=== PATIENT | male | born 1960 | race Caucasian/White ===

== ENCOUNTER 2020-03-31 13:09 | Inpatient (IN) | payer OTHER, SELFPAY ==
[~2020-03-31] VITALS: Ht 170.2 cm; Wt 90.7 kg
[2020-03-31 13:27] VITALS: BP 161/93
--- NOTE | 2020-03-31 13:32 | NUR ---
ERMD MADE AWARE OF 77% ON ROOM AIR
--- NOTE | 2020-03-31 13:38 | NUR ---
PT PLACED ON 6L NC IN TENT FOR HYPOXIA. 90% ON 6L NC.
[2020-03-31] MEDS ORDERED: ALBUTEROL HFA MDI 90 MCG/ACTUATION 8 GM INH ONE (15:05)
[2020-03-31] MEDS ORDERED: AZITHROMYCIN 500 MG in DEXTROSE 5% 250 ML IV ONE (15:05)
[2020-03-31] MEDS ORDERED: DEXAMETHASONE 4 MG/ML VIAL IVP ONE (15:05)
--- NOTE | 2020-03-31 15:31 | NUR ---
EKG PERFORMED IN TENT. EKG READS SINUS TACHYCARDIA @ 100
[2020-03-31 15:35] LABS: HEMATOCRIT 39.9 % (36-52); HEMOGLOBIN 13.5 g/dL (12.0-18.0); MEAN CORPUSCULAR HEMOGLOBIN 30 pg (27-31); MEAN CORPUSCULAR HGB CONC 34 g/dL (33-37); MEAN CORPUSCULAR VOLUME 88.3 fL (80-94); PLATELET COUNT (AUTO) 443 K/uL (140-450); RED BLOOD CELL COUNT(AUTO) 4.52 MIL/uL (4.20-6.10); RED CELL DISTRIBUTION WIDTH 13.8 % (11.6-13.7); WHITE BLOOD COUNT (AUTO) 15.5 K/uL (4.8-10.8)
[2020-03-31 16:05] LABS: BLASTS, MANUAL % 1 % (0-0); LYMPHOCYTES % (MANUAL) 12 % (20-46); MONOCYTES % (MANUAL) 4 % (5-12); PROMYELOCYTES % 1 % (0-0)
[2020-03-31 16:12] LABS: ALBUMIN 2.8 g/dL (3.4-5.0); ANION GAP 13.3 (8-16); CARBON DIOXIDE 27.7 mmol/L (21-32); CREATININE 0.9 mg/dL (0.6-1.3); TOTAL BILIRUBIN 0.6 mg/dL (0.0-1.0)
[2020-03-31] MEDS ORDERED: DEXAMETHASONE 4 MG/ML VIAL ONE (16:35)
[2020-03-31] MEDS ORDERED: cefTRIAXone 1,000 MG VIAL ONE (16:35)
--- NOTE | 2020-03-31 16:44 | NUR ---
BREATHING TX OMITTED DUE TO HIGHER CLINICAL PRIORITY, IN CODE BLUE.
--- NOTE | 2020-03-31 17:04 | NUR ---
NOVEL/POLINA SWABS COLLECTED AND SENT TO LAB
--- NOTE | 2020-03-31 17:55 | NUR ---
Received from the tent, report from MASHA Fang O2 @ 6l/min NC, O2 sat 92%, VVS except HTN, HOB elevated Resp even and unlabored, in NAD
--- NOTE | 2020-03-31 18:05 | NUR ---
SPOKE WITH PTS SON TIFFANIE, PER PT REQUEST, TO GIVE UPDATE ON PLAN OF CARE. STATES HE WILL BRING PTS CELLPHONE/DEFENCE FORCE SENIOR OFFICER PER PTS REQUEST.
--- NOTE | 2020-03-31 18:05 | NUR ---
IV started left hand #20g, meds and abx given
[2020-03-31] MEDS ORDERED: AZITHROMYCIN 500 MG INJ VIAL IV ONE (18:21)
--- NOTE | 2020-03-31 19:16 | NUR ---
KELSY FROM [facility] CALLED FOR CLINICAL INFORMATION
--- NOTE | 2020-03-31 19:20 | NUR ---
RT AT BEDSIDE EVALUATING PT.
--- NOTE | 2020-03-31 19:30 | NUR ---
RECEIVED REPORT FROM EDU FLANAGAN FOR CONTINUITY OF CARE.
--- NOTE | 2020-03-31 19:32 | NUR ---
Detailed report given to MASHA Khanna for fast food shift lead. Questions answered. Orders and meds reviewed.
--- NOTE | 2020-03-31 19:40 | NUR ---
ABG WAS REDRAWN AT 192 PT WAS ON 5LNC. PH 7.448 CO2 37.0 PO2 55.2 HCO3 25 BE 1.3 SATS 89%. PLACED PT ON NRB MASK AT 15L PER DR GASCA
--- NOTE | 2020-03-31 21:32 | NUR ---
NOTIFIED ER MD GASCA OF PT'S HIGH BP: 166/111 AND GAVE NEW VERBAL ORDER FOR CLONIDINE 0.1 X 1 TAB. ORDER READ BACK.
[2020-03-31] MEDS ORDERED: CLONIDINE HYDROCHLORIDE 0.1 MG TAB PO ONE (21:35)
--- NOTE | 2020-03-31 22:18 | NUR ---
PT LAYING IN BED IN NO ACUTE DISTRESS NOTED, RESPIRATIONS ARE EVEN AND UNLABORED, BREATHING THROUGH NON-REBREATHER MASK 15 L OF OXYGEN. O2 SAT AT THIS TIME 96%. ON CARDIAC MONITORING, PULSE OXIMETRY AND BP MONITORING.
[2020-03-31] MEDS ORDERED: POTASSIUM CHLORIDE 10 MEQ TABER PO PRN (23:10)
[2020-03-31] MEDS ORDERED: LORazepam 1 MG TAB PO PRN (23:10)
[2020-03-31] MEDS ORDERED: ACETAMINOPHEN 325 MG TAB PO PRN (23:10)
[2020-03-31] MEDS: NACL 0.9% 1,000 ML IV SCH (23:10)
[2020-03-31] MEDS ORDERED: HYDROcodone/APAP 5/325 MG 1 TAB TAB PO PRN (23:10)
[2020-03-31] MEDS ORDERED: KCL 20 MEQ/WATER INJ PREMIX 200 ML IV PRN (23:10)
[2020-03-31] MEDS ORDERED: MAG SULF 2000 MG/WATER PREMIX 50 ML IV PRN (23:10)
[2020-03-31] MEDS ORDERED: ONDANSETRON 4 MG/2 ML VIAL IVP PRN (23:10)
--- NOTE | 2020-04-01 07:09 | NUR ---
PT STATES HE DOES NOT TAKE ANY HOME MEDS AT HOME. ATTEMPTED TO MAKE HOME RECORD BUT UNABLE TO MAKE RECORD AT THIS TIME IN SYSTEM.
--- NOTE | 2020-04-01 07:15 | NUR ---
RECEIVED ENDORSEMENT FROM OVERLOCK HEMMER, AWAKE,ALERT, ORIENTEDX4 , WITH O2 AT 15L/MIN VIA NON REBREATHER MASK, [id number]-77%. ADMITTED A CASE OF COVID AND ACUTE RESPIRATORY FAILURE, WITH IV CANNULA G20 AT LEFT HAND ON SALINE LOCK NOTED. SAFETY MEASURES IN PLACE AND CONTINUE MONITOR
--- NOTE | 2020-04-01 07:25 | NUR ---
GAVE REPORT TO RELYN RN FOR CONTINUITY OF CARE.
--- NOTE | 2020-04-01 09:24 | NUR ---
PATIENT HAS BEEN SCREENED AND CATEGORIZED MODERATE NUTRITION RISK. PATIENT WILL BE SEEN WITHIN 3-5 DAYS OF ADMISSION. 04/03/20 04/05/[address]
[2020-04-01] MEDS: DEXAMETHASONE 4 MG/ML VIAL IVP SCH (09:25)
--- NOTE | 2020-04-01 09:28 | NUR ---
FULLY AWAKE AND ALERT,DUE MEDICATION GIVEN,
--- NOTE | 2020-04-01 09:36 | NUR ---
RECEIVED REPORT FROM ER NURSE. PT IS AAOX4, MONGOLIAN SPEAKING, HAS LH20G INFUSING NS. EDEMA IN LOWER LIMBS, SKIN INTACT. WILL WAIT FOR PT TO COME TO UNIT
--- NOTE | 2020-04-01 09:37 | NUR ---
MST CONTACTED FOR TRANSFER AND TALKED TO MASHA SEO, REPORT GIVEN.
[2020-04-01 09:48] LABS: BASOPHILS % (AUTO) 0.2 % (0.0-2.0); HEMATOCRIT 39.5 % (36-52); HEMOGLOBIN 13.2 g/dL (12.0-18.0); LYMPHOCYTES # (AUTO) 0.7 K/uL (2.0-11.5); LYMPHOCYTES % (AUTO) 5.1 % (20.5-51.1); MEAN CORPUSCULAR HEMOGLOBIN 30 pg (27-31); MEAN CORPUSCULAR HGB CONC 33 g/dL (33-37); MEAN CORPUSCULAR VOLUME 89.4 fL (80-94); MONOCYTES # (AUTO) 0.7 K/uL (0.8-1.0); MONOCYTES % (AUTO) 5.2 % (1.7-9.3); NEUTROPHILS # (AUTO) 11.5 K/uL (1.8-7.7); NEUTROPHILS % (AUTO) 89.5 % (42.2-75.2); PLATELET COUNT (AUTO) 469 K/uL (140-450); RED BLOOD CELL COUNT(AUTO) 4.42 MIL/uL (4.20-6.10); RED CELL DISTRIBUTION WIDTH 13.8 % (11.6-13.7); WHITE BLOOD COUNT (AUTO) 12.9 K/uL (4.8-10.8)
--- NOTE | 2020-04-01 10:00 | NUR ---
RECEIVED PT FROM ER NURSE. PT INTRODUCE TO PT. OBTAINED MRSA SWAB. PT IS STABLE, WILL CONTINUE TO MONITOR.
--- NOTE | 2020-04-01 10:05 | NUR ---
ENDORSED TO MST MASHA SEO IN STABLE CONDITION FOR CONTINUITY OF CARE.
[2020-04-01 10:23] LABS: ALBUMIN 2.6 g/dL (3.4-5.0); ANION GAP 13.6 (8-16); CARBON DIOXIDE 26.7 mmol/L (21-32); CREATININE 0.8 mg/dL (0.6-1.3); MAGNESIUM 2.8 mg/dL (1.8-2.4); POTASSIUM 4.3 mmol/L (3.5-5.1); TOTAL BILIRUBIN 0.5 mg/dL (0.0-1.0)
--- NOTE | 2020-04-01 11:51 | NUR ---
SOCIAL WORK NOTE: Patient's Orientation Unable To Assess Information Provided By GAB ST - SON Comments SW WAS UNABLE TO MEET PATIENT AT BEDSIDE DUE TO MEDICAL CONDITION. SW COMPLETED ASSESSMENT WITH PATIENT'S SON. Snack Foods Mixer Operator, Realtionship and Phone Number GAB ST SON [phone] Healthcare Power of Outside Sales Inspector No Does Patient Have a POLST No Identifying Problems No Social Work Triggers Is A Social Work Consult Needed No Mandate Report Filed No Explanation Of Identifying Problems PATIENT IS A 60-YEAR-OLD MALE ADMITTED FOR ACUTE HYPIX RESPIRATORY FAILURE. PATIENT HAS PMHX OF HYPERTENSION. SON REPORTED NO HISTORY OF SUBSTANCE ABUSE OR MENTAL HEALTH. Admitted From Home Pre-Admission Level Of Functioning Status Independent/Ambulatory Prior Resources/Services Used In Last 12 Months No Prior Resources Used Prior DME No Prior DME Used Dialysis Comments N/A Living Situation Lives With Family House Patient Had Caregiver No Home Support No Caregiver Issues Financial Issues No Known Financial Issue Referral To The Financial Counselor Needed No Factors/Needs No D/C Needs Identified Pt/Rep Participated In Discharge Plan Yes Patient/Family Agress With Discharge Plan Yes Discharge Plan Comments TENTATIVE DISCHARGE PLAN IS FOR PATIENT TO RETURN HOME. DC Plan Status Initiated
[2020-04-01 12:00] VITALS: BP 153/79
[2020-04-01] MEDS: NACL 0.9% 1,000 ML IV SCH ×2 (13:35→17:43)
--- NOTE | 2020-04-01 15:13 | NUR ---
DCM PLANNIN YRS OLD MALE PATIENT WAS ADMITTED FROM HOME WITH A DX OF ACUTE HYPOXIC RESP FAILURE, COVID. PT HAS A HX OF CXR SHOWED MODERATE PATCHY OPACITIES CONCERNING FOR MULTIFOCAL PNEUMONIA. RAPID COVID TEST POSITIVE PCR IS PENDING. STARTED COVID PROTOCOL REMDESIVIR IV, ROCEPHIN AND AZITHROMYCIN IV ABX . CURRENTLY 15LNRB SATING 91% [id number]% . CONSULTED WITH ID AND PULMO. DC PLAN PER PT RESPOND TO THE TREATMENT. CM TO FOLLOW. Addendum: 04/08/20 at 1341 by Graciela Lacy RN DC PLANNING: FAXED THE HOME O2 ORDER TO [facility] [phone] CM TO FOLLOW UP Addendum: 04/08/20 at 1530 by Graciela Lacy RN DC PLANNING [facility] SPOKE WITH TRENT HERNDON RECEIVED THE HOME O2 ORDER AND WILL BE DELIVERED TONIGHT. NOTIFIED DANI FLANAGAN Addendum: 04/09/20 at 1416 by Sasha Mason CM KALEIGH SERVICE MEMBER: SPOKE TO MASHA BAUER THE HOME O2 HAS NOT YET BEEN DELIVERED. FOLLOWED UP WITH TRENT HERNDON AT [facility] [phone] SHE STATED THAT [facility] HAS BEEN TRYING TO CONTACT FAMILY TO GET A PAYMENT.
[2020-04-01 16:00] VITALS: BP 152/99
[2020-04-01] MEDS ORDERED: CLONIDINE HYDROCHLORIDE 0.1 MG TAB PO PRN (16:30)
[2020-04-01] MEDS ORDERED: remdesivir COMMUNICATION ORDER 1 EA MISC MC PRN (16:30)
--- NOTE | 2020-04-01 17:20 | NUR ---
late entry -- zithromax end time 1919 [place] [id number]/31/20.
--- NOTE | 2020-04-01 17:43 | NUR ---
ADMINISTERED SCHEDULED MEDICATION, MEDICATION EDUCATION PROVIDED. PT TOLERATED WELL. PT IS STABLE, WILL CONTINUE TO MONITOR
[2020-04-01] MEDS ORDERED: remdesivir CLINICAL MONITORING 1 EA MISC MC PRN (18:05)
[2020-04-01] MEDS: AZITHROMYCIN 500 MG in DEXTROSE 5% 250 ML IV SCH (18:28)
--- NOTE | 2020-04-01 18:30 | NUR ---
ADMINISTERED SCHEDULED MEDICATION, MEDICATION, EDUCATION PROVIDED. PT TOLERATED WELL. PT IS STABLE, WILL CONTINUE TO MONITOR.
--- NOTE | 2020-04-01 19:35 | NUR ---
RECEIVED PT ON BED, AAOX4, WATCHING SPORTS ON HIS CELLPHONE, NO RESP DISTRESS NOTED, SAT-89% ON O2 OF 10L VIA NONREBREATHER MASK, ZITHROMAX IVPB INFUSING WELL VIA GRAVITY, MAINTAIN ON DROPLET PRECAUTION FOR COVID POSITIVE, PLAN OF CARE DISCUSSED AND SAFETY MEASURES IN PLACE, CALL LIGHT WITHIN REACH.
--- NOTE | 2020-04-01 19:53 | NUR ---
ENDORSE PT TO NIGHT NURSE FOR CONTINUITY OF CARE, PT IS STABLE
[2020-04-01 20:00] VITALS: BP 163/92
[2020-04-01] MEDS ORDERED: REMDESIVIR (EUA) 200 MG in NACL 0.9% 100 ML IV SCH (20:00)
--- NOTE | 2020-04-01 20:45 | NUR ---
LOADING DOSE OF REMDESIVIR IVPB STARTED, MONITORED FOR ANY REACTION, DUE HEPARIN SUB-Q ADMINISTERED, PT RESTING AT THIS TIME, NO RESP DISTRESS, ALL NEEDS ATTENDED.
[2020-04-02] VITALS: BP 145/83
--- NOTE | 2020-04-02 | NUR ---
PT SLEEPING, NO RESP DISTRESS NOTED, CONTINUE ON 10L O2 VIA NONREBREATHER MASK WITH SAT OF 93%, CONTINUE TO MONITOR CLOSELY.
[2020-04-02 04:00] VITALS: BP 141/68
--- NOTE | 2020-04-02 04:00 | NUR ---
PT SLEEPING, NO SIGNS OF RESP DISTRESS, CONTINUE ON O2 AT 10L VIA NONREBREATHER MASK WITH SAT OF 91%, MONITORED CLOSELY.
--- NOTE | 2020-04-02 07:22 | NUR ---
PT AWAKE, NO SIGNS OF DISTRESS, REPORT GIVEN TO MASHA GROVER FOR CONTINUITY OF CARE.
--- NOTE | 2020-04-02 07:25 | NUR ---
RECEIVED BEDSIDE REPORT FROM LIVE IN HOUSEKEEPER NURSE. PT IS AWAKE AND LAYING IN BED, AAOX4, RESPIRATIONS EVEN AND UNLABORED. NO RESP DISTRESS NOTED, SAT-93% ON O2 OF 10L VIA NONREBREATHER MASK. SKIN IS WARM AND DRY. IV SITE IS ON LH 20 G. PATENT AND INTACT. MAINTAIN ON DROPLET PRECAUTION FOR COVID POSITIVE, PLAN OF CARE DISCUSSED. SAFETY MEASURES IN PLACE. BED IN LOW POSITION AND CALL LIGHT WITHIN REACH. WILL CONTINUE TO MONITOR.
[2020-04-02 08:00] VITALS: BP 145/80
[2020-04-02 08:42] LABS: BASOPHILS % (AUTO) 0.1 % (0.0-2.0); EOSINOPHILS % (AUTO) 0.2 % (0.0-4.0); HEMATOCRIT 38.4 % (36-52); HEMOGLOBIN 12.7 g/dL (12.0-18.0); LYMPHOCYTES # (AUTO) 0.9 K/uL (2.0-11.5); LYMPHOCYTES % (AUTO) 5.5 % (20.5-51.1); MEAN CORPUSCULAR HEMOGLOBIN 30 pg (27-31); MEAN CORPUSCULAR HGB CONC 33 g/dL (33-37); MEAN CORPUSCULAR VOLUME 88.9 fL (80-94); MONOCYTES # (AUTO) 0.8 K/uL (0.8-1.0); MONOCYTES % (AUTO) 4.6 % (1.7-9.3); NEUTROPHILS # (AUTO) 14.7 K/uL (1.8-7.7); NEUTROPHILS % (AUTO) 89.6 % (42.2-75.2); PLATELET COUNT (AUTO) 507 K/uL (140-450); RED BLOOD CELL COUNT(AUTO) 4.32 MIL/uL (4.20-6.10); RED CELL DISTRIBUTION WIDTH 13.8 % (11.6-13.7); WHITE BLOOD COUNT (AUTO) 16.4 K/uL (4.8-10.8)
[2020-04-02] MEDS: DEXAMETHASONE 4 MG/ML VIAL IVP SCH (08:45)
--- NOTE | 2020-04-02 08:46 | NUR ---
ALL SCHEDULED MEDS GIVEN. PT IS STABLE. NO DISTRESS NOTED. WILL CONTINUE TO MONITOR.
[2020-04-02 09:10] LABS: ALBUMIN 2.5 g/dL (3.4-5.0); ANION GAP 14.6 (8-16); CARBON DIOXIDE 26.4 mmol/L (21-32); CREATININE 0.9 mg/dL (0.6-1.3); MAGNESIUM 2.5 mg/dL (1.8-2.4); TOTAL BILIRUBIN 0.5 mg/dL (0.0-1.0)
[2020-04-02 12:00] VITALS: BP 142/85
[2020-04-02] MEDS: NACL 0.9% 1,000 ML IV SCH (12:25)
--- NOTE | 2020-04-02 12:27 | NUR ---
PT C/C OF FEELING HOT. TEMPERATURE WAS AT 99.7. ADMINISTERED TYLENOL PO PER ORDER.
--- NOTE | 2020-04-02 15:15 | NUR ---
PATIENT IS STABLE AND WATCHING TV. NO RESPIRATORY DISTRESS NOTED. WILL CONTINUE TO MONITOR.
[2020-04-02 16:00] VITALS: BP 147/95
[2020-04-02] MEDS: REMDESIVIR (EUA) 100 MG in NACL 0.9% 100 ML IV SCH (17:50)
[2020-04-02] MEDS: AZITHROMYCIN 500 MG in DEXTROSE 5% 250 ML IV SCH (19:00)
--- NOTE | 2020-04-02 19:34 | NUR ---
ENDORSED TO CAP AND HAT PRODUCTION SUPERVISOR NURSE FOR CONTINUITY OF CARE.
--- NOTE | 2020-04-02 19:35 | NUR ---
RECEIVED PT IN STABLE CONDITION FROM AM NURSE. AWAKE,ALERT AND ORIENTED X4. TELE PT. DROPLET ISOLATION FOR COVID 19. NO SOB NOTED. WITH 10L O2 NRM. IVF INFUSING WELL . PLAN OF CARE DISCUSSED AND VERBALIZED UNDERSTANDING. FREQ ROUNDS NEEDED. BED ON LOW POSITION. SIDE RAILS UPX2. CALL LIGHT AND URINAL PLACED WITHIN REACH. WILL CONTINUE TO MONITOR.
[2020-04-02 20:00] VITALS: BP 147/95
--- NOTE | 2020-04-02 21:00 | NUR ---
MADE ROUNDS. AWAKE. NO SOB NOTED. PROVIDED WITH URINAL AT BEDSIDE.
--- NOTE | 2020-04-02 23:00 | NUR ---
MADE ROUNDS. PT ASLEEP. NO S/S OF ANY DISTRESS NOTED. WILL CONTINUE TO MONITOR.
[2020-04-03] VITALS: BP 140/82
[2020-04-03] MEDS: NACL 0.9% 1,000 ML IV SCH ×2 (01:10→07:19)
--- NOTE | 2020-04-03 03:24 | NUR ---
PT AWAKE. C/O HEADACHE. TYLENOL 650 MG PO GIVEN. WILL CONTINUE TO MONITOR.
[2020-04-03 04:00] VITALS: BP 149/88
--- NOTE | 2020-04-03 05:00 | NUR ---
PT IN STABLE CONDITION . ON 10L NRM. O2 SAT 93%.
--- NOTE | 2020-04-03 07:09 | NUR ---
ENDORSED PT IN STABLE CONDITION TO AM NURSE.
--- NOTE | 2020-04-03 07:10 | NUR ---
RECEIVED PATIENT FROM NIGHT NURSE. PATIENT IN BED AWAKE AND ALERT. RESP EVEN AND UNLABORED ON 10L NRB. DENIED OF PAIN. LH 20G INFUSING NS 80ML/HR. HOB ELEVATED. BED IN LOW POSITIONS. CALL LIGHT WITHIN REACH. WILL CONTINUE TO MONITOR.
[2020-04-03 08:00] VITALS: BP 143/93
[2020-04-03] MEDS: DEXAMETHASONE 4 MG/ML VIAL IVP SCH (09:20)
--- NOTE | 2020-04-03 09:20 | NUR ---
PATIENT IN BED AWAKE AND ALERT. RESP EVEN AND UNLABORED ON 10L NONREBREATHER, O2SAT 92%. DENIED OF PAIN AT THIS TIME. LH 20G INTACT AND PATENT INFUSING NS 80 ML/HR. PATIENT ABLE TO MAKE NEEDS KNOWN DESPITE LANGUAGE BARRIER. -PLAN OF CARE DISCUSSED, PATIENT VERBALIZED UNDERSTANDING. HOB ELEVATED. CALL LIGHT WITHIN REACH. WILL CONTINUE TO MONITOR.
[2020-04-03 09:36] LABS: BASOPHILS % (AUTO) 0.2 % (0.0-2.0); EOSINOPHILS # (AUTO) 0.1 K/uL (0-0.4); EOSINOPHILS % (AUTO) 0.6 % (0.0-4.0); HEMATOCRIT 38.3 % (36-52); HEMOGLOBIN 12.8 g/dL (12.0-18.0); LYMPHOCYTES % (AUTO) 6.8 % (20.5-51.1); MEAN CORPUSCULAR HEMOGLOBIN 30 pg (27-31); MEAN CORPUSCULAR HGB CONC 34 g/dL (33-37); MEAN CORPUSCULAR VOLUME 88.8 fL (80-94); MONOCYTES # (AUTO) 0.9 K/uL (0.8-1.0); MONOCYTES % (AUTO) 6.3 % (1.7-9.3); NEUTROPHILS # (AUTO) 12.3 K/uL (1.8-7.7); NEUTROPHILS % (AUTO) 86.1 % (42.2-75.2); PLATELET COUNT (AUTO) 520 K/uL (140-450); RED BLOOD CELL COUNT(AUTO) 4.31 MIL/uL (4.20-6.10); RED CELL DISTRIBUTION WIDTH 13.7 % (11.6-13.7); WHITE BLOOD COUNT (AUTO) 14.3 K/uL (4.8-10.8)
[2020-04-03 10:38] LABS: ALBUMIN 2.5 g/dL (3.4-5.0); ANION GAP 14.1 (8-16); CREATININE 0.8 mg/dL (0.6-1.3); MAGNESIUM 2.4 mg/dL (1.8-2.4); POTASSIUM 4.1 mmol/L (3.5-5.1); TOTAL BILIRUBIN 0.6 mg/dL (0.0-1.0)
--- NOTE | 2020-04-03 11:28 | NUR ---
PATIENT LYING IN BED WATCHING TV. NO NOTED ACUTE S/S DISTRESS. ABLE TO MAKE NEEDS KNOWN. CALL LIGHT WITHIN REACH. WILL CONTINUE TO MONITOR.
[2020-04-03 12:00] VITALS: BP 166/99
--- NOTE | 2020-04-03 14:10 | NUR ---
CATAPRES GIVEN D/T HIGH BP 166/99 HR 91. WILL REASSESS FOR EFFECTIVENESS. PATIENT IN BED AWAKE AND ALERT. DENIED OF PAIN AT THIS TIME. RESP EVEN AND UNLABORED ON 10L NONREBREATHER. CALL LIGHT WITHIN REACH. WILL CONTINUE TO MONITOR.
[2020-04-03 16:00] VITALS: BP 145/87
--- NOTE | 2020-04-03 16:55 | NUR ---
PATIENT IN BED WATCHING TV. NO NOTED DISTRESS. RESP EVEN AND UNLABORED ON 10L NONREBREATHER. DENIED OF PAIN AT THIS TIME. CALL LIGHT WITHIN REACH. WILL CONTINUE TO MONITOR.
[2020-04-03] MEDS: REMDESIVIR (EUA) 100 MG in NACL 0.9% 100 ML IV SCH (17:50)
[2020-04-03] MEDS: AZITHROMYCIN 500 MG in DEXTROSE 5% 250 ML IV SCH (19:06)
--- NOTE | 2020-04-03 19:15 | NUR ---
ENDORSED PATIENT TO NIGHT NURSE. PATIENT IN STABLE CONDITION.
--- NOTE | 2020-04-03 19:20 | NUR ---
RECEIVED PT IN STABLE CONDITION FROM AM NURSE. AWAKE, ALERT AND ORIENTED X4. ON TELE MONITOR. WITH O2 10 L NRB. ON DROPLET ISOLATION FOR COVID 19+. NO SOB NOTED. PLAN OF CAR DISCUSSED AND VERBALIZED UNDERSTANDING. FREQ ROUNDS NEEDED. BED ON LOW POSITION. CALL LIGHT AND URINALS WITHIN REACH. WILL CONTINUE TO MONITOR.
[2020-04-03 20:00] VITALS: BP 145/94
--- NOTE | 2020-04-03 22:00 | NUR ---
MADE ROUNDS. AWAKE. IV BEEPING. FLUSHED WITH NS. INFUSING WELL .
[2020-04-04] VITALS: BP 145/85
--- NOTE | 2020-04-04 02:00 | NUR ---
MADE ROUNDS PT ASLEEP. NO S/S OF ANY RESPIRATORY DISTRESS NOTED.
[2020-04-04] MEDS: NACL 0.9% 1,000 ML IV SCH ×2 (02:10→04:50)
[2020-04-04 04:00] VITALS: BP 146/82
--- NOTE | 2020-04-04 04:30 | NUR ---
PT AWAKE WITH NO C/O ANY DISTRESS NOTED.
--- NOTE | 2020-04-04 05:00 | NUR ---
CHECKED ON PT. SLEEPING WELL AT THIS TIME. NO S/S OF ANY DISTRESS NOTED. Addendum: 04/05/20 at 0751 by Imani Renteria RN CANCEL THIS NOTE.
--- NOTE | 2020-04-04 06:00 | NUR ---
CHECKED ON PT. AWAKE WITH NO C/O NO DISCOMFORT AND RESPIRATORY DISTRESS NOTED.
[2020-04-04 06:07] LABS: LD2 FRACTION 29 % (25-40); LD5 FRACTION 16 % (4-20)
--- NOTE | 2020-04-04 07:10 | NUR ---
ENDORSED PT IN STABLE CONDITION TO AM NURSE.
--- NOTE | 2020-04-04 07:12 | NUR ---
RECEIVED PATIENT FROM NIGHT NURSE. PATIENT IN BED SLEEPING, CHEST NOTED RISING. NO ACUTE S/S DISTRESS. LH 20G INFUSING NS 80 ML/HR. HOB ELEVATED. DROPLET PRECAUTION OBSERVED. CALL LIGHT WITHIN REACH. WILL CONTINUE TO MONITOR
[2020-04-04 08:00] VITALS: BP 145/88
[2020-04-04 08:50] LABS: BASOPHILS % (AUTO) 0.1 % (0.0-2.0); EOSINOPHILS # (AUTO) 0.1 K/uL (0-0.4); EOSINOPHILS % (AUTO) 0.8 % (0.0-4.0); HEMATOCRIT 38.7 % (36-52); HEMOGLOBIN 12.8 g/dL (12.0-18.0); LYMPHOCYTES # (AUTO) 1.2 K/uL (2.0-11.5); LYMPHOCYTES % (AUTO) 7.8 % (20.5-51.1); MEAN CORPUSCULAR HEMOGLOBIN 30 pg (27-31); MEAN CORPUSCULAR HGB CONC 33 g/dL (33-37); MEAN CORPUSCULAR VOLUME 88.7 fL (80-94); MONOCYTES % (AUTO) 6.9 % (1.7-9.3); NEUTROPHILS # (AUTO) 12.8 K/uL (1.8-7.7); NEUTROPHILS % (AUTO) 84.4 % (42.2-75.2); PLATELET COUNT (AUTO) 584 K/uL (140-450); RED BLOOD CELL COUNT(AUTO) 4.36 MIL/uL (4.20-6.10); RED CELL DISTRIBUTION WIDTH 13.8 % (11.6-13.7); WHITE BLOOD COUNT (AUTO) 15.2 K/uL (4.8-10.8)
[2020-04-04] MEDS: DEXAMETHASONE 4 MG/ML VIAL IVP SCH (08:55)
--- NOTE | 2020-04-04 08:55 | NUR ---
PATIENT IN BED AWAKE AND ALERT. MORNING ROUTINE MEDICATIONS GIVEN. RESP EVEN AND UNLABORED ON 10L NONREBREATHER, O2SAT 93%. DENIED OF PAIN AT THIS TIME. LH 20G INTACT INFUSING NS 80ML/HR. PLAN OF CARE DISCUSSED, PATIENT VERBALIZED UNDERSTANDING. HOB ELEVATED. SAFETY MEASURES IN PLACE. CALL LIGHT WITHIN REACH. WILL CONTINUE TO MONITOR.
[2020-04-04 09:39] LABS: ALBUMIN 2.4 g/dL (3.4-5.0); ANION GAP 15.4 (8-16); CARBON DIOXIDE 24.9 mmol/L (21-32); CREATININE 0.8 mg/dL (0.6-1.3); MAGNESIUM 2.4 mg/dL (1.8-2.4); POTASSIUM 4.3 mmol/L (3.5-5.1); TOTAL BILIRUBIN 0.4 mg/dL (0.0-1.0)
--- NOTE | 2020-04-04 11:25 | NUR ---
PATIENT IN BED WATCHING TV. RESP EVEN AND UNLABORED. NO ACUTE S/S DISTRESS. ABLE TO MAKE NEEDS KNOWN. CALL LIGHT WITHIN REACH. WILL CONTINUE TO MONITOR.
[2020-04-04 12:00] VITALS: BP 145/87
--- NOTE | 2020-04-04 13:54 | NUR ---
PATIENT IN BED SLEEPING, CHEST NOTED RISING. NO ACUTE S/S DISTRESS. CALL LIGHT WITHIN REACH. WILL CONTINUE TO MONITOR.
--- NOTE | 2020-04-04 15:44 | NUR ---
ENDORSED PATIENT TO MASHA MELVIN FOR CONTINUITY OF CARE. PATIENT IN STABLE CONDITION.
[2020-04-04 16:00] VITALS: BP 153/90
[2020-04-04 16:01] LABS: FERRITIN 1753 ng/mL (30 - 400); LACTATE DEHYDROGENASE 461 IU/L (0-214); LD1 FRACTION 10 % (17-32); LD3 FRACTION 28 % (17-27); LD4 FRACTION 17 % (5-13)
--- NOTE | 2020-04-04 16:58 | NUR ---
FULLY AWAKE NAD ALERT, NOT IN DISTRESS NOTED
[2020-04-04] MEDS: REMDESIVIR (EUA) 100 MG in NACL 0.9% 100 ML IV SCH (17:32)
--- NOTE | 2020-04-04 17:38 | NUR ---
DUE REMDISIVER IV GIVEN, VITAL SIGNS TAKEN AND RECORDED, [id number] AT 15L/MIN VIA NON REBREATHER MASK, NON LABORED BREATHING NOTED
[2020-04-04] MEDS: AZITHROMYCIN 500 MG in DEXTROSE 5% 250 ML IV SCH (18:18)
--- NOTE | 2020-04-04 18:22 | NUR ---
DUE MEDICATION GIVEN, NOT IN DISTRESS NOTED.
--- NOTE | 2020-04-04 19:30 | NUR ---
ENDORSED TO TECHNOLOGY ADMINISTRATOR IN STABLE CONDITION FOR CONTINUITY OF CARE
--- NOTE | 2020-04-04 19:35 | NUR ---
RECEIVED PT IN STABLE CONDITION FROM AM NURSE. AWAKE,ALERT AND ORIENTED X4. TELE PT. ON DROPLET ISOLATION DUE TO COVID 19 +. ON O2 10L NRB . NO SOB NOTED. HAS IVF INFUSING WELL ON THE LT HAND g#20. CLEAR AND PATENT. INSTRUCTED TO KEEP O2 AT ALL TIMES. VERBALIZED UNDERSTANDING. FREQ ROUNDS NEEDED. BED ON LOW POSITION. SIDE RAILS UP X2. CALL LIGHT AND URINAL WITHIN REACH. WILL CONTINUE TO MONITOR.
[2020-04-04 20:00] VITALS: BP 149/88
--- NOTE | 2020-04-04 21:00 | NUR ---
MADE ROUNDS. PT AWAKE. NO SOB NOTED.
--- NOTE | 2020-04-04 23:00 | NUR ---
MADE ROUNDS. PT ASLEEP. NO S/S OF ANY DISTRESS NOTED.
[2020-04-05] VITALS: BP 133/75
--- NOTE | 2020-04-05 02:40 | NUR ---
IV INFILTRATED ON ELT HAND. DISCONTINUED. A NEW IV ACCESS STARTED ON THE RT HAND G#20. CLEAR AND PATENT.
[2020-04-05] MEDS: NACL 0.9% 1,000 ML IV SCH ×4 (03:10→21:23)
[2020-04-05 04:30] VITALS: BP 140/84
--- NOTE | 2020-04-05 05:00 | NUR ---
CHECKED ON PT. SLEEPING WELL AT THIS TIME. NO S/S OF ANY DISTRESS NOTED.
--- NOTE | 2020-04-05 07:35 | NUR ---
ENDORSED PT IN STABLE CONDITION TO AM NURSE.
--- NOTE | 2020-04-05 07:36 | NUR ---
RECEIVED PT AT THIS TIME FROM NETWORK RELATIONS CONSULTANT RN. PT IS STABLE. WILL CONTINUE WITH POC.
[2020-04-05 08:00] VITALS: BP 133/73
--- NOTE | 2020-04-05 09:10 | NUR ---
SCHEDULED MEDICATION GIVEN TOLERATED WELL PT IS AWAKE AND ALERT ORIENTED X 4. GREENLANDIC SPEAKING ABLE TO COMMUNICATE EFFECTIVELY. HAS IV ACCESS TO RIGHT HAND THAT IS TAKE AND PATENT, RECEIVING IVF. SKIN INTACT, LUNG SOUNDS DIMINISHED ABD IS ROUND, SOFT AND NONTENDER WITH ACTIVE BS. LBM 12/25, DENIES DIFFICULTY. CALL LIGHT WITHIN REACH, REMAINS ON 10L NRB. WILL CONTINUE WITH POC.
[2020-04-05 09:29] LABS: BASOPHILS % (AUTO) 0.2 % (0.0-2.0); EOSINOPHILS # (AUTO) 0.1 K/uL (0-0.4); EOSINOPHILS % (AUTO) 0.8 % (0.0-4.0); HEMATOCRIT 38.2 % (36-52); HEMOGLOBIN 12.6 g/dL (12.0-18.0); LYMPHOCYTES # (AUTO) 1.5 K/uL (2.0-11.5); LYMPHOCYTES % (AUTO) 9.9 % (20.5-51.1); MEAN CORPUSCULAR HEMOGLOBIN 29 pg (27-31); MEAN CORPUSCULAR HGB CONC 33 g/dL (33-37); MEAN CORPUSCULAR VOLUME 88.8 fL (80-94); MONOCYTES % (AUTO) 6.7 % (1.7-9.3); NEUTROPHILS # (AUTO) 12.7 K/uL (1.8-7.7); NEUTROPHILS % (AUTO) 82.4 % (42.2-75.2); PLATELET COUNT (AUTO) 640 K/uL (140-450); RED BLOOD CELL COUNT(AUTO) 4.31 MIL/uL (4.20-6.10); RED CELL DISTRIBUTION WIDTH 13.7 % (11.6-13.7); WHITE BLOOD COUNT (AUTO) 15.4 K/uL (4.8-10.8)
[2020-04-05] MEDS: DEXAMETHASONE 4 MG/ML VIAL IVP SCH (09:32)
--- NOTE | 2020-04-05 10:37 | NUR ---
04/05/20 RD INITIAL ASSESSMENT COMPLETED PLEASE REFER TO NUTRITION ASSESSMENT UNDER CARE ACTIVITY FOR ESTIMATED NUTRITIONAL NEEDS. 1. CONTINUE CARDIAC, MECH SOFT DIET 2. CONTINUE ENSURE BID 3. RD TO FOLLOW-UP 3-5 DAYS, MODERATE RISK ENRIQUETA ELI RD
[2020-04-05 10:51] LABS: ALBUMIN 2.4 g/dL (3.4-5.0); ANION GAP 15.9 (8-16); CARBON DIOXIDE 25.3 mmol/L (21-32); CREATININE 0.9 mg/dL (0.6-1.3); MAGNESIUM 2.5 mg/dL (1.8-2.4); POTASSIUM 4.2 mmol/L (3.5-5.1); TOTAL BILIRUBIN 0.4 mg/dL (0.0-1.0)
[2020-04-05 12:00] VITALS: BP 135/75
--- NOTE | 2020-04-05 12:30 | NUR ---
V/S: 97.3, 83, 20, 135/75, 95 % ON 10L NRB. CALL NEEDS MET CALL LIGHT WITHIN REACH
--- NOTE | 2020-04-05 14:07 | NUR ---
DURING ROUNDS PT OBSERVED LAYING IN BED WATCHING TV IN NO DISTRESS. REMAINS ON 10L NRB
[2020-04-05 16:00] VITALS: BP 137/82
--- NOTE | 2020-04-05 16:50 | NUR ---
V/S: 97.9, 85, 20, 137/82, 95% ON 10L NRB. CALL LIGHT WITHIN REACH ALL NEEDS MET
[2020-04-05] MEDS: REMDESIVIR (EUA) 100 MG in NACL 0.9% 100 ML IV SCH (17:42)
--- NOTE | 2020-04-05 18:20 | NUR ---
SCHEDULED MEDICATION GIVEN TOLERATING IVPB WITH NO ISSUES.
[2020-04-05] MEDS: AZITHROMYCIN 500 MG in DEXTROSE 5% 250 ML IV SCH (18:45)
--- NOTE | 2020-04-05 19:30 | NUR ---
RECEIVED BEDSIDE REPORT FROM DAY SHIFT NURSE FOR CONTINUITY OF CARE. PT IS AWAKE AND ALERT. ON 10L O2 NRB WITH BREATHING UNLABORED. SR ON TELE MONITORING. URINAL AT THE BEDSIDE FOR VOIDING. LAST BM WAS YESTERDAY PER DAY SHIFT NURSE. IV IN THE RIGHT HAND 20 GAUGE RUNNING NS AT 80 ML PER HOUR. SKIN IS WARM, DRY AND INTACT. PLAN OF CARE DISCUSSED. DROPLET PRECAUTION IN PLACE FOR COVID POSITIVE.
[2020-04-05 20:00] VITALS: BP 142/90
--- NOTE | 2020-04-05 21:30 | NUR ---
ROUNDED ON PT HE IS SLEEPING IN SEMI FOWLERS POSITION. NO RESPIRATORY DISTRESS NOTED. CHEST RISE AND FALL IS SYMMETRICAL. PT IS STABLE.
--- NOTE | 2020-04-05 23:30 | NUR ---
FLUSHED IV AND IT IS PATENT. FLUIDS ARE INFUSING ORDERED. PT IS AWOKEN EASILY BY NOISE. A&OX4. URINAL IS AT BEDSIDE AND BELONGINGS ARE WITHIN REACH. WILL CONTINUE TO MONITOR.
[2020-04-06] VITALS: BP 135/88
--- NOTE | 2020-04-06 01:30 | NUR ---
PT'S BREATHING IS UNLABORED. O2 SAT IS 100% ON 10 L O2 NRB. PT WAS TITRATED DOWN TO 8L O2 NRB. NO DISTRESS NOTED. WILL CONTINUE TO MONITOR O2 SAT. IT IS NOW AT 97% O2 SAT.
[2020-04-06 04:00] VITALS: BP 134/74
--- NOTE | 2020-04-06 04:00 | NUR ---
PT IS SLEEPING IN SEMI FOWLERS POSITION. PT REPOSITIONS SELF. NO DISTRESS NOTED. PT IS STABLE.
--- NOTE | 2020-04-06 04:55 | NUR ---
O2 SAT IS 97% ON 8L O2 NRB. NO RESPIRATORY DISTRESS. FLUIDS ARE INFUSING ORDERED. PT IS STABLE AT THIS TIME.
--- NOTE | 2020-04-06 06:00 | NUR ---
PT IS SLEEPING. PT IS STABLE AT THIS TIME. NO COUGHING OR SOB NOTED. IV FLUIDS ARE INFUSING ORDERED.
--- NOTE | 2020-04-06 07:30 | NUR ---
ENDORSED PT TO DAY SHIFT NURSE FOR CONTINUITY OF CARE. PT IS STABLE AT THIS TIME. NO DISTRESS NOTED.
--- NOTE | 2020-04-06 07:31 | NUR ---
RECEIVED ENDORSEMENT FROM DRAFTER STRUCTURAL, AWAKE,ALERT, ORIENTEDX4, FAROESE SPEAKER, WITH O2 AT 10L/MIN VIA NON REBREATHER MASK, NON LABORED NOTED. WITH ONGOING IV FLUID WITH 0.9%NS 80ML/HOUR INFUSING WELL AT RT HAND G20 IV CANNULA NOTED. SAFETY MEASURES IN PLACE AND CONTINUE MONITOR
[2020-04-06 08:00] VITALS: BP 142/90
[2020-04-06] MEDS: DEXAMETHASONE 4 MG/ML VIAL IVP SCH (08:58)
--- NOTE | 2020-04-06 09:18 | NUR ---
FULLY AWAKE AND ALERT, BREAKFAST SERVED AND DUE MEDICATION GIVEN
[2020-04-06 12:00] VITALS: BP 139/88
--- NOTE | 2020-04-06 12:35 | NUR ---
FULLY AWAKE AND ALERT, NOT IN DISTRESS NOTED
--- NOTE | 2020-04-06 14:45 | NUR ---
TO TOILET AMBULATORY, ABLE TO PASSED MODERATE AMOUNT OF STOOL CLAIMED
[2020-04-06 16:00] VITALS: BP 146/89
--- NOTE | 2020-04-06 16:36 | NUR ---
FULLY AWAKE, NOT IN DISTRESS NOTED
[2020-04-06] MEDS: NACL 0.9% 1,000 ML IV SCH (16:56)
--- NOTE | 2020-04-06 18:06 | NUR ---
DINNER SERVED, NOT IN DISTRESS NOTED, STILL ON 8L/MIN VIA NON REBREATHER MASK, O2 SAT-95-96%.
--- NOTE | 2020-04-06 19:20 | NUR ---
ENDORSED TO TRANSPORTATION SPECIALIST IN STABLE CONDITION FOR CONTINUITY OF CARE
--- NOTE | 2020-04-06 19:22 | NUR ---
RECEIVED PT SITTING UP ON BED WATCHING TV, AAOX4, NO RESP DISTRESS NOTED, SAT-93% ON 8L NRB MASK, IVF INFUSING WELL, DINNER CONSUMED 100%, VOIDING FREELY PER URINAL, PLAN OF CARE DISCUSSED AND SAFETY MEASURES IN PLACE, DROPLET PRECAUTION IN PLACE FOR COVID POSITIVE, CALL LIGHT WITHIN REACH.
[2020-04-06 20:00] VITALS: BP 140/87
[2020-04-06] MEDS: APIXABAN 2.5 MG TAB PO SCH (20:40)
--- NOTE | 2020-04-06 20:40 | NUR ---
DUE MEDICATION GIVEN , ALL NEEDS ATTENDED.
[2020-04-07] VITALS: BP 140/85
--- NOTE | 2020-04-07 | NUR ---
PT SLEEPING, EASILY AROUSABLE, VITAL SIGNS STABLE, SAT-93% ON 8L NRB MASK, NO SOB NOTED, IVF INFUSING WELL, CONTINUE TO MONITOR CLOSELY.
[2020-04-07 04:00] VITALS: BP 132/87
--- NOTE | 2020-04-07 04:20 | NUR ---
PT SLEEPING, AROUSABLE TO NAME, VITAL SIGNS STABLE, NO RESP DISTRESS NOTED, MONITORED CLOSELY.
[2020-04-07] MEDS: NACL 0.9% 1,000 ML IV SCH ×2 (05:32→17:24)
[2020-04-07 08:00] VITALS: BP 124/80
--- NOTE | 2020-04-07 08:00 | NUR ---
RECEIVED REPORT FROM VISUAL JOURNALIST FOR CONTINUITY OF CARE. PATIENT ALERT AWAKE ORIENTED X4. ON 8L NRB 93% SATURATION. DENIES PAIN. ON MONITOR SHOWS SR. WITH IVF ON GOING AND INFUSING WELL. NEEDS ATTENDED. WILL CONTINUE TO MONITOR.
--- NOTE | 2020-04-07 09:00 | NUR ---
DUE MEDICATION GIVEN AND TOLERATED WELL.
[2020-04-07] MEDS: APIXABAN 2.5 MG TAB PO SCH ×2 (09:08→21:56)
[2020-04-07] MEDS: DEXAMETHASONE 4 MG/ML VIAL IVP SCH (09:09)
[2020-04-07 12:00] VITALS: BP 131/77
--- NOTE | 2020-04-07 12:00 | NUR ---
PATIENT RESTING IN BED, NOT IN DISTRESS. SON CALLED FOR UPDATE, GAVE INFORMATION. WILL CONTINUE TO MONITOR.
[2020-04-07 16:00] VITALS: BP 124/72
--- NOTE | 2020-04-07 18:22 | NUR ---
TITRATE O2 TO 6L NRB SATURATION 92-93%, NO SOB NOTED.
--- NOTE | 2020-04-07 19:15 | NUR ---
RECD. RESTING IN BED, AWAKE, A/OX4. RESPIRATION EVEN AND UNLABORED. IV OF NS AT 60 ML/HR INFUSING, RIGHT HAND G20. USES THE URINAL. SAFETY MEASURES ENFORCED. BED IN THE LOWEST POSITION, CALL LIGHT IN REACH. PLAN OF CARE DISCUSSED WITH MASHA MORTON TO THE PATIENT. VERBALIZED UNDERSTANDING. DENIES PAIN 0/10.
[2020-04-07 20:00] VITALS: BP 135/88
--- NOTE | 2020-04-07 20:00 | NUR ---
Patient's Plan of Care was discussed and reviewed with EQUIPMENT DETAILER: CED COBB
--- NOTE | 2020-04-07 21:56 | NUR ---
DUE MEDICATION FOR THE NIGHT GIVEN.
--- NOTE | 2020-04-08 | NUR ---
SLEEPING COMFORTABLY IN BED, NO SOB NOTED.
--- NOTE | 2020-04-08 02:00 | NUR ---
LAYING ON HIS RIGHT SIDE, COMFORTABLE. NO SOB NOTED.
[2020-04-08 04:00] VITALS: BP 136/80
--- NOTE | 2020-04-08 04:00 | NUR ---
02 SAT - 100% ON NON REBREATHER MASK AT 5 LITERS.
[2020-04-08] MEDS: NACL 0.9% 1,000 ML IV SCH ×3 (06:10→23:28)
--- NOTE | 2020-04-08 07:00 | NUR ---
CONDITION REMAIN STABLE. WILL ENDORSE TO AM SHIFT NURSE FOR CONTINUITY OF CARE.
[2020-04-08 08:00] VITALS: BP 142/89
--- NOTE | 2020-04-08 08:30 | NUR ---
RECEIVED REPORT FROM DAYSHIFT NURSE. PT RESTING IN BED. ABLE TO MAKE NEEDS KNOWN. RESPIRATIONS EVEN AND UNLABORED WITH NO SOB OR RESPIRATORY DISTRESS. SKIN WARM AND DRY TO TOUCH. IV SITE IN R HAND 20G IS CLEAN, DRY, AND INTACT. SAFETY MEASURES IN PLACE. WILL CONTINUE TO MONITOR
[2020-04-08] MEDS: APIXABAN 2.5 MG TAB PO SCH ×2 (08:57→20:51)
[2020-04-08] MEDS: DEXAMETHASONE 4 MG/ML VIAL IVP SCH (08:58)
--- NOTE | 2020-04-08 09:04 | NUR ---
ADMINISTERED SCHED MED PRESCRIBED PER MD ORDER. PT TOLERATED WELL. MEDICATION EDUCATION PERFORMED. PT VERBALIZED UNDERSTANDING. SAFETY MEASURES IN PLACE. WILL CONTINUE TO MONITOR
--- NOTE | 2020-04-08 10:30 | NUR ---
PT ON 6L OXYMIZER SATURATING AT 91%. NO SIGNS OF DISTRESS NOTED. SAFETY MEASURES IN PLACE. WILL CONTINUE TO MONITOR
--- NOTE | 2020-04-08 14:15 | NUR ---
HOURLY ROUNDING. PT RESTING IN BED. ABLE TO MAKE NEEDS KNOWN. RESPIRATIONS EVEN AND UNLABORED WITH NO SOB OR RESPIRATORY DISTRESS. SKIN WARM AND DRY TO TOUCH. SAFETY MEASURES IN PLACE. WILL CONTINUE TO MONITOR
[2020-04-08 16:00] VITALS: BP 116/74
--- NOTE | 2020-04-08 16:30 | NUR ---
PT ON PHONE WITH FAMILY. ABLE TO MAKE NEEDS KNOWN. RESPIRATIONS EVEN AND UNLABORED WITH NO SOB OR RESPIRATORY DISTRESS. SKIN WARM AND DRY TO TOUCH. SAFETY MEASURES IN PLACE. WILL CONTINUE TO MONITOR
[2020-04-08] MEDS ORDERED: DEXA6TAB1 PO (16:50)
[2020-04-08] MEDS ORDERED: APIX2.5 PO (16:50)
--- NOTE | 2020-04-08 17:30 | NUR ---
PT IS AWARE OF DISCHARGE ORDER AND IS AWARE THAT OXYGEN NEEDS TO BE DELIVERED PRIOR TO DISCHARGE. PT IS IN AGREEMENT. SAFETY MEASURES IN PLACE. WILL CONTINUE TO MONITOR
[2020-04-08 17:59] VITALS: BP 116/74
--- NOTE | 2020-04-08 19:45 | NUR ---
ENDORSED TO NIGHTSHIFT NURSE FOR CONTINUITY OF CARE. PT IS STABLE
--- NOTE | 2020-04-08 19:46 | NUR ---
RECEIVED PT IN STABLE CONDITION FROM AM NURSE. AWAKE,ALERT AND ORIENTED X4. MED SURG. WITH NO SOB NOTED ON O2 5L OXIMIZER. DENIES PAIN. PT FOR DC HOME TONIGHT WITH O2 . STILL WAITING FOR DELIVERY OF O2 TANK. DISCHARGE PAPERS READY TO BE GIVEN TO PT. . IVF INFUSING WELL RT HAND G#20. WILL CONTINUE TO MONITOR.
[2020-04-08 20:00] VITALS: BP 143/92
--- NOTE | 2020-04-08 22:43 | NUR ---
TRIED CALLING [facility] TO FOLLOW UP HOME O2 BUT NO ANSWER ON . PT ALREADY SIGNED DISCHARGE PAPERS.
--- NOTE | 2020-04-08 23:22 | NUR ---
HOME O2 FOR PT NOT HERE YET. . CALLED DR. COOPER, DR. DEVLIN SHRUB GROWER. HE SAID IF IT'S NOT AVAILABLE TONIGHT THEN HOLD DISCHARGE FOR TOMORROW.
--- NOTE | 2020-04-09 02:00 | NUR ---
CHECKED ON PT. ASLEEP. NO S/S OF ANY DISCOMFORT NOR ANY DISTRESS NOTED. WILL CONTINUE TO MONITOR.
[2020-04-09 04:00] VITALS: BP 136/73
--- NOTE | 2020-04-09 04:00 | NUR ---
MADE ROUNDS. PT SLEEPING. NO SOB NOTED.
--- NOTE | 2020-04-09 07:15 | NUR ---
REC'D REPORT FROM MANAGER SOUND NURSE, PT WILL BE DISCHARGED HOME WIT OXYGEN THERAPY WHICH HAS NOT ARRIVED YET, WILL FOLLOW UP WITH SS TO INQUIRE, PT SLEEPING, STABLE 5L OXIMIZER, CALL LIGHT WITHIN REACH.
--- NOTE | 2020-04-09 07:20 | NUR ---
ENDORSED PT IN STABLE CONDITION TO AM NURSE.
[2020-04-09] MEDS: APIXABAN 2.5 MG TAB PO SCH (09:11)
--- NOTE | 2020-04-09 09:15 | NUR ---
ADMINISTERED MEDICATIONS PER MD ORDER, PT TOLERATED WELL, STABLE
--- NOTE | 2020-04-09 11:03 | NUR ---
LEFT MESSAGE FOR INSPECTOR POISING TO RETURN CALL RE: STATUS OF OXYGEN FOR DISCHARGE.
[2020-04-09] MEDS: DEXAMETHASONE 4 MG/ML VIAL IVP SCH (11:04)
--- NOTE | 2020-04-09 14:30 | NUR ---
INFORMED PT WE WERE STILL WAITING FOR OXYGEN COMPANY TO DELIVER O2 FOR DISCHARGE, PT VERBALLY UNDERSTOOD
[2020-04-09 16:00] VITALS: BP 139/91
--- NOTE | 2020-04-09 17:55 | NUR ---
PT RESTING IN BED, STABLE. CALL LIGHT WITHIN REACH.
--- NOTE | 2020-04-09 20:25 | NUR ---
DISCHARGED PT. REMOVED IV CATHETER WHICH WAS INTACT, ID BAND REMOVED. EDUCATED PT ON USE OF OXYGEN, TAUGHT HOW TO TURN ON OXYGEN, HOW TO PLACE CANNULA, PT TO BE ON 5L/MIN. ADVISED TO PURCHASE HOME OXYGEN SATURATION MONITOR AND MONITOR FOR OXYGEN TO REMAIN ABOVE 90%. PT VERBALLY UNDERSTOOD .PT STABLE, PICKED UP BY [facility], LEFT WITH PERSONAL BELONGINGS
== END 2020-04-09 20:15 | disposition home or self-care (01) | DRG 871 ==
LOC: MED 13:09 → MTU 23:25
PROVIDERS: ADMIT Hospitalist; ATTEND Hospitalist
PROC: XW033E5 Introduction of Remdesivir Anti-infective into Peripheral Vein, Percutaneous Approach, New Technology Group 5 (ICD-10-PCS; principal; 2020-04-01)
DX: A41.89 Other specified sepsis (principal); U07.1 COVID-19; J96.01 Acute respiratory failure with hypoxia; J12.89 Other viral pneumonia; R73.9 Hyperglycemia, unspecified; I10 Essential (primary) hypertension
CPT/HCPCS: 36415; 36600; 71045; 80053; 82728; 82803; 83605; 83625; 83735; 83880; 84484; 85025; 85379; 85384; 86140; 87040; 87081; 93005; 96374; 99291; 99292; J0456; J0696; J1100; J1644; J7060; U0003